=== PATIENT | male | born 1995 | race Caucasian/White ===

== ENCOUNTER 2021-02-05 07:42 | Emergency (ER) | payer OTHER ==
[2021-02-05 08:14] LABS: HEMOGLOBIN 15.7 gm/dl (14.0-17.5)
[2021-02-05 08:17] LABS: RED BLOOD COUNT 4.97 M/UL (4.20-5.50); WHITE BLOOD COUNT 15.2 K/UL (4.5-11.0)
[2021-02-05 08:32] LABS: BUN/CREATININE RATIO 18 (0-10)
[2021-02-05] MEDS ORDERED: BACTRIM 400-801 EACH PO (10:18)
[2021-02-05] MEDS ORDERED: CLINDAMYCIN HC300 MG PO (10:18)
[2021-02-05] MEDS ORDERED: AMOXICILLIN500 MG PO (10:18)
== END 2021-02-05 10:43 | disposition home or self-care (01) ==
LOC: ER1 07:42
PROVIDERS: Emergency Medicine
DX: L03.211 Cellulitis of face (principal); K04.7 Periapical abscess without sinus
CPT/HCPCS: 70491; 80053; 83605; 85025; 87040; 96374; 99284; J2540; J7030; Q9963